=== PATIENT | female | born 1945 | race Caucasian/White ===

== ENCOUNTER 2016-09-16 07:51 | Day surgery (SDC) | payer OTHER ==
[2016-09-15 11:00] VITALS: BMI 20.5
--- NOTE | 2016-09-15 15:08 | HP ---
- Patient Scheduled date of Surgery: 09/16/16 Scheduled Surgical Procedure: Phacoemulsification and cataract extraction with PCIOL Affected Eye: Right Chief Complaint (Indication for surgery): Decreased vision affecting ADLs - Ocular History Other Eye History: Other (none) Eye Medications: vigamox 3/0 Previous Eye Surgery: none - Medical History Illnesses: Hypertension, Other (RA, myeloproliferative disorder, GERD, migraines ) Current Medications: Ambulatory Orders Amitriptyline HCl [Elavil -] 25 mg PO HS 09/15/16 Aspirin [ASA -] 81 mg PO DAILY 09/15/16 Hydroxychloroquine Sulfate 200 mg PO BID 09/15/16 Hydroxyurea [Hydrea -] 500 mg PO ASDIR 09/15/16 Olmesartan Medoxomil [Benicar (Nf)] 10 mg PO DAILY 09/15/16 Ranitidine [Zantac -] 150 mg PO BID 09/15/16 Sumatriptan Succinate [Imitrex] 25 mg PO PRN PRN 09/15/16 Allergies/Adverse Reactions: Allergies Allergy/AdvReac Type Severity Reaction Status Date / Time Penicillins Allergy Verified 09/15/16 11:01 Ocular Examination - Best Corrected Visual Acuity Distance: Right eye: 20/40- Distance: Left eye: 20/40 - External/Slit Lamp Examination Abnormalities: herniation of orbital fat - Intraocular Pressure Intraocular Pressure - Right eye: 14 Intraocular Pressure-Left eye: 14 - Lens Lens: 2-3 + NS - Vitreous/Retina Vitreous/Retina: cd 0.15 dull reflex m./v/p wnl - Special Examination M - Right eye: +0.25-1.25 x 110 M - Left eye: +0.50-1.25 x 065 K - Right eye: 46.50/46.75 x 180 K - Left eye: 46/47.25 x 165 AL - Right eye: 23.39 AL - Left eye: 23.66 IOL bag: +17.5 d hoya 251 IOL sulcus: +17.0 d hoya 231 IOL AC: +14.5 d MTA 4uo - Impression Impression: Cataract Right Eye - Plan Plan: Phacoemulsification and cataract extraction - IOL Right eye Post-hospital care will be provided in office on: 09/17/16
--- NOTE | 2016-09-15 15:21 | HP ---
History & Physical Update - History History: No Change - Physical Physical: No Change - Assessment Assessment: No Change - Plan Plan: No Change
[~2016-09-16 07:51] MED LIST: ACETAMINOPHEN 325 MG TABLET (FP) PO PRN; CHONDROITIN SU A/HYALUR SOD 1 KIT IO ONE; CIPROFLOXACIN HCL 0.3% OPHTH 2.5ML BOTTLE OP SCH; DICLOFENAC SODIUM 0.1% OPHTHALMIC 2.5ML BOTTLE OP SCH; PHENYLEPHRINE 2.5% OPHTH SOLN 15 ML BOTTLE OP SCH; TOBRAMYCIN/DEXAMETHASONE OPHTH. OINTMENT 1 TUBE TP ONE; TROPICAMIDE 1% OPHTH SOLN 15 ML BOTTLE OP SCH
[2016-09-16 08:24] VITALS: TEMP 98.2
[2016-09-16] MEDS: CIPROFLOXACIN 0.3% EYE DROPS 5 ML BOTTLE ONE ×3 (08:30→08:52)
[2016-09-16] MEDS: DICLOFENAC SODIUM 0.1% OPHTHALMIC 2.5ML BOTTLE ONE ×3 (08:30→08:52)
[2016-09-16] MEDS: TROPICAMIDE 1% OPHTH SOLN 15 ML BOTTLE ONE ×3 (08:30→08:53)
[2016-09-16] MEDS: PHENYLEPHRINE 2.5% OPHTH SOLN 15 ML BOTTLE ONE ×3 (08:30→08:53)
[2016-09-16] MEDS ORDERED: LIDOCAINE HCL/PF 1% SDV 5ML VIAL ONE (09:30)
[2016-09-16] MEDS ORDERED: BSS (NA/CA/MG/K) BALANCED SALT SOLUTION OPHTH SOLN 15 ML BOTTLE ONE (09:30)
[2016-09-16] MEDS ORDERED: TOBRAMYCIN/DEXAMETHASONE OPHTH. OINTMENT 1 TUBE ONE (09:30)
[2016-09-16] MEDS ORDERED: EPINEPHrine/PF 1 MG/1 ML (1:1,000) AMPULE ONE (09:30)
[2016-09-16] MEDS ORDERED: LIDOCAINE HCL 2% JELLY (5 ML/TUBE) TP ONE (09:35)
[2016-09-16] MEDS ORDERED: MIDAZOLAM HCL 2 MG/2 ML SINGLE DOSE VIAL ONE (09:45)
[2016-09-16] MEDS ORDERED: LIDOCAINE HCL 1% PRESERVATIVE FREE - 30ML VIAL IO ONE (09:54)
[2016-09-16] MEDS ORDERED: CHONDROITIN SU A/HYALUR SOD 1 KIT IO ONE ×2 (09:54→10:15)
[2016-09-16] MEDS ORDERED: TOBRAMYCIN/DEXAMETHASONE OPHTH. OINTMENT 1 TUBE TP ONE (10:22)
[2016-09-16] MEDS ORDERED: ACETAMINOPHEN 325 MG TABLET (FP) ONE (10:51)
[2016-09-16 13:06] VITALS: BP 137/68; PULSE 65
--- NOTE | 2016-09-16 13:25 | OP ---
DATE OF OPERATION: 09/16/2016 PREOPERATIVE DIAGNOSIS: Cataract, right eye. POSTOPERATIVE DIAGNOSIS: Cataract, right eye. PROCEDURE: Phacoemulsification and cataract extraction with insertion of posterior chamber intraocular lens, right eye. SURGEON: Roberta Sanderson MD SAP INTEGRATION ARCHITECT: None. ANESTHESIA: Topical. SCOW CAPTAIN: Delicia Willis CRNA OPERATIVE PROCEDURE: Following satisfactory intravenous sedation, the patient received viscous lidocaine gel drops and was then prepped and draped in the usual sterile fashion, so as to expose only the right eye. Ophthalmic Betadine was instilled into the inferior fornix, and the lashes were taped out of the surgical field. An eyelid speculum was placed into the right eye. A paracentesis was made in superior clear cornea at the limbus. Then, 0.5 mL of nonpreserved lidocaine was injected into the anterior chamber and 1 mL of dilute epinephrine 1:10,000 was injected into the anterior chamber to improve pupillary dilation. Viscoelastic material was then instilled into the anterior chamber via the paracentesis. A 2.4-mm keratome was used to create the main incision in temporal clear cornea at the limbus. A continuous curvilinear capsulorrhexis was performed using a cystotome and Utrata forceps. Hydrodissection of the lens cortex was performed using BSS on a cannula until the nucleus was noted to be freely rotating. The phacoemulsification tip was inserted via the main wound and used to sculpt two perpendicular grooves into the lens nucleus. The lens nucleus was cracked into four quadrants using the two instruments. Each quadrant was lifted out of the capsule into the iris plane and individually phacoemulcified. The remaining cortical material was then aspirated using the irrigation and aspiration port. The capsular bag was inflated using Provisc and a preloaded Hoya lens, model 251, power +17.5 diopters was injected into the capsular bag and centered using a Sinskey hook. The residual viscoelastic material was removed from the anterior chamber using irrigation and aspiration. The wound edges were hydrated using BSS. The wound was tested for leakage and found to be watertight. Therefore, TobraDex ointment was placed in the eye, and the speculum was removed from the eye, and the eyelid was closed. A sterile dressing and shield were placed over the eye, and the patient was transferred to the recovery room in stable condition, told to follow up in 1 day. ROBERTA SANDERSON M.D. [id number]
== END 2016-09-16 11:45 | disposition home or self-care (01) ==
LOC: JASU-SURG 07:51
PROVIDERS: ATTEND Ophthalmology
PROC: 08RJ3JZ Replacement of Right Lens with Synthetic Substitute, Percutaneous Approach (ICD-10-PCS; principal; 2016-09-16 09:30)
DX: H26.9 Unspecified cataract (principal)

== ENCOUNTER 2016-12-23 06:09 | Day surgery (SDC) | payer OTHER ==
--- NOTE | 2016-12-22 16:10 | HP ---
- Patient Scheduled date of Surgery: 12/23/16 Scheduled Surgical Procedure: Phacoemulsification and cataract extraction with PCIOL Affected Eye: Left Chief Complaint (Indication for surgery): Decreased vision affecting ADLs - Ocular History Other Eye History: Other (none) Eye Medications: vigamox Previous Eye Surgery: s/p ce/pciol 1:10,000 epi, floppy iris - Medical History Illnesses: Hypertension, Other (RA, myeloproliferative d/o, gerd , migraine headaches) Current Medications: Ambulatory Orders Amitriptyline HCl [Elavil -] 25 mg PO HS 09/15/16 Aspirin [ASA -] 81 mg PO DAILY 09/15/16 Hydroxychloroquine Sulfate 200 mg PO BID 09/15/16 Hydroxyurea [Hydrea -] 500 mg PO ASDIR 09/15/16 Olmesartan Medoxomil [Benicar (Nf)] 10 mg PO DAILY 09/15/16 Ranitidine [Zantac -] 150 mg PO BID 09/15/16 Sumatriptan Succinate [Imitrex] 25 mg PO PRN PRN 09/15/16 Allergies/Adverse Reactions: Allergies Allergy/AdvReac Type Severity Reaction Status Date / Time Penicillins Allergy Verified 12/21/16 10:16 Ocular Examination - Best Corrected Visual Acuity Distance: Right eye: 20/25 Distance: Left eye: 20/60 - External/Slit Lamp Examination Abnormalities: normal - Intraocular Pressure Intraocular Pressure - Right eye: 13 Intraocular Pressure-Left eye: 13 - Lens Lens: 2-3+ ns - Vitreous/Retina Vitreous/Retina: c:D 0.15 m/v/p wnl - Special Examination M - Right eye: +1.00-1.00 x 95 M - Left eye: +1.25- 2.25 x 065 K - Right eye: 42/44.5 x 002 K - Left eye: 46/47 x 145 AL - Right eye: 23.39 AL - Left eye: 23.66 IOL bag: +17.5 d hoya 251, 30 degree LRI at 138 and 318 IOL sulcus: +16.5 d hoya 2 IOL AC: +14.0d MTA - Plan Plan: Phacoemulsification and cataract extraction - IOL Left eye Post-hospital care will be provided in office on: 12/24/16
--- NOTE | 2016-12-22 16:14 | HP ---
History & Physical Update - History History: No Change - Physical Physical: No Change - Assessment Assessment: No Change - Plan Plan: No Change
[~2016-12-23 06:09] MED LIST changes: -CHONDROITIN SU A/HYALUR SOD 1 KIT IO ONE; -CIPROFLOXACIN HCL 0.3% OPHTH 2.5ML BOTTLE OP SCH; -DICLOFENAC SODIUM 0.1% OPHTHALMIC 2.5ML BOTTLE OP SCH; -PHENYLEPHRINE 2.5% OPHTH SOLN 15 ML BOTTLE OP SCH; +TOBRAMYCIN/DEXAMETHASONE OPHTH. OINTMENT 1 TUBE OS ONE; -TOBRAMYCIN/DEXAMETHASONE OPHTH. OINTMENT 1 TUBE TP ONE
[2016-12-23] MEDS ORDERED: TROPICAMIDE 1% OPHTH SOLN 15 ML BOTTLE ONE (06:21)
[2016-12-23] MEDS ORDERED: CIPROFLOXACIN 0.3% EYE DROPS 5 ML BOTTLE ONE (06:21)
[2016-12-23] MEDS ORDERED: DICLOFENAC SODIUM 0.1% OPHTHALMIC 2.5ML BOTTLE ONE (06:21)
[2016-12-23] MEDS: PHENYLEPHRINE 2.5% OPHTH SOLN 15 ML BOTTLE OP SCH ×3 (06:40→06:50)
[2016-12-23] MEDS: CYCLOPENTOLATE HCL 1% OPHTH SOLN 2 ML BOTTLE OS SCH ×3 (06:40→06:50)
[2016-12-23] MEDS: DICLOFENAC SODIUM 0.1% OPHTHALMIC 2.5ML BOTTLE OP SCH ×3 (06:40→06:50)
[2016-12-23] MEDS: CIPROFLOXACIN HCL 0.3% OPHTH 2.5ML BOTTLE OP SCH ×2 (06:40→06:50)
[2016-12-23] MEDS ORDERED: LIDOCAINE HCL/PF 2% SDV 5ML VIAL ONE (07:17)
[2016-12-23] MEDS ORDERED: MIDAZOLAM HCL 2 MG/2 ML SINGLE DOSE VIAL ONE ×2 (07:17→08:05)
[2016-12-23] MEDS ORDERED: PROPOFOL 20 ML ONE (07:17)
[2016-12-23] MEDS ORDERED: TOBRAMYCIN/DEXAMETHASONE OPHTH. OINTMENT 1 TUBE ONE (07:19)
[2016-12-23] MEDS ORDERED: EPINEPHrine/PF 1 MG/1 ML (1:1,000) AMPULE ONE (07:19)
[2016-12-23] MEDS ORDERED: LIDOCAINE HCL/PF 1% SDV 5ML VIAL ONE (07:19)
[2016-12-23] MEDS ORDERED: LIDOCAINE HCL 2% JELLY (5 ML/TUBE) ONE (07:19)
[2016-12-23] MEDS ORDERED: LIDOCAINE HCL 2% JELLY (5 ML/TUBE) TP ONE (07:38)
[2016-12-23] MEDS ORDERED: POVIDONE-IODINE 5% OPHTHALMIC PREP 30 ML SOLUTION OS ONE (07:40)
[2016-12-23] MEDS ORDERED: BSS (NA/CA/MG/K) BALANCED SALT SOLUTION OPHTH SOLN 15 ML BOTTLE OS ONE (07:51)
[2016-12-23] MEDS ORDERED: CHONDROITIN SU A/HYALUR SOD 1 KIT IO ONE (07:51)
[2016-12-23] MEDS ORDERED: LIDOCAINE HCL 1% PRESERVATIVE FREE - 30ML VIAL IO ONE (07:51)
[2016-12-23] MEDS ORDERED: EPINEPHrine/PF 1 MG/1 ML (1:1,000) AMPULE SQ ONE ×2 (07:51→07:58)
[2016-12-23] MEDS ORDERED: TOBRAMYCIN/DEXAMETHASONE OPHTH. OINTMENT 1 TUBE OS ONE (08:23)
--- NOTE | 2016-12-23 08:32 | OP ---
Ophthalmology Operative Note Pre-Operative Diagnosis: Cataract Affected Eye: Left Operation: Phacoemulsification and cataract extraction with PCIOL Findings: cataract left eye Post-Operative Diagnosis: Same as Pre-op Wildlife Veterinarian: None Anesthesiologist: Taz Schneider Anesthesia: Topical Specimens Removed: none Estimated blood loss: none Drains & Tubes with Location: none Operative Report Dictated: Yes
[2016-12-23 09:42] VITALS: BP 140/70; PULSE 72; TEMP 97.8
--- NOTE | 2016-12-23 11:24 | OP ---
DATE OF OPERATION: 12/23/2016 PREOPERATIVE DIAGNOSIS: Cataract, left eye. POSTOPERATIVE DIAGNOSIS: Cataract, left eye. PROCEDURE: Phacoemulsification and cataract extraction with insertion of posterior chamber intraocular lens, left eye. SURGEON: Roberta Sanderson MD ESTIMATING ENGINEER: None. ANESTHESIA: Topical. ANESTHESIOLOGIST: Taz Schneider CRNA OPERATIVE PROCEDURE: Following satisfactory intravenous sedation, the patient received 2% viscous lidocaine gel and was then prepped and draped in the usual sterile fashion so as to expose only the left eye. Ophthalmic Betadine was instilled into the inferior fornix, and the lashes were taped out of the surgical field. An eyelid speculum was placed into the left eye. A paracentesis was made in inferior clear cornea at the limbus. Next, 0.5 mL of nonpreserved lidocaine was injected into the anterior chamber, and 1 mL of dilute epinephrine 1:10,000. Viscoelastic material was then instilled into the anterior chamber via the paracentesis. A 2.4-mm keratome was then used to create the main incision in temporal clear cornea at the limbus. A continuous curvilinear capsulorrhexis was performed using a cystotome and Utrata forceps. Hydrodissection of the lens cortex was performed using BSS on a cannula until the nucleus was noted to be freely rotating. The phacoemulsification tip was then inserted via the main wound and used to sculpt 2 perpendicular grooves into the lens nucleus. The nucleus was crackled into 4 quadrants using 2 instruments. Each quadrant was lifted out of the capsule into the iris plane and individually phacoemulsified. The remaining cortical material was then aspirated using the irrigation and aspiration port. The capsular bag was inflated using Provisc, and a preloaded Hoya lens model 251, power +17.5 diopters was injected into the capsular bag and centered using a Sinskey hook. The residual viscoelastic material was removed from the anterior chamber using irrigation and aspiration. The wound edges were hydrated using BSS. The wound was tested for leakage and was found to be watertight. TobraDex ointment was placed in the eye. The speculum was removed from the eye, and a sterile dressing and shield were placed over the eye. The patient was transferred to the recovery room in stable condition, told to follow up in 1 day. ROBERTA SANDERSON M.D. [id number]
== END 2016-12-23 09:43 | disposition home or self-care (01) ==
LOC: JASU-SURG 06:09
PROVIDERS: ATTEND Ophthalmology
PROC: 08RK3JZ Replacement of Left Lens with Synthetic Substitute, Percutaneous Approach (ICD-10-PCS; principal; 2016-12-23 07:30)
DX: H26.9 Unspecified cataract (principal)